=== PATIENT | male | born 1990 | race Caucasian/White ===

== ENCOUNTER 2017-04-27 15:28 | Inpatient (IN) | payer BC, OTHER ==
[~2017-04-27] VITALS: Ht 172.7 cm; Wt 59.0 kg
--- NOTE | 2017-04-27 22:30 | NUR ---
Pre-Admission Patient is a 26 year old male, seen at intake, AAOx4, no SOB and with slight anxiety noted at this time. Discussed with patient admission policies of the unit. Patient is coherent and able to respond to questions appropriately. Pt is ambulatory with steady gait. Vital Signs taken and is as follows: BP 128/78, pulse 120, resp 16, SpO2 98% room air, temp 97.4. Pt verbalizes instructions and teachings regarding disposal of narcotic and other controlled home meds, unit protocols such as taking of vital signs Q4H and handling and disposal of contraband. Will continue with admission upon pts arrival on the unit.
[2017-04-27 22:40] VITALS: BP 128/78
--- NOTE | 2017-04-27 22:40 | NUR ---
Admission Note Pt is a 26 year old male admitted to [facility] on 04/27/2017 for Opiate/Benzo dependence, arrived on the unit at 2240. NKA, denies history of seizures. Pt was able to provide urine drug screen. Upon admission, COWS 5, CIWA 3, BP 128/78, pulse 120, resp 16, SpO2 98% room air, temp 97.4, no pain, rated 0/10, weight 130lb and height 58. Pts primary care provider is Dr. Rivera Mckee in [place]. Pt denies being hospitalized within the past 30 days. Pt is able to understand and respond to all questions pertaining to his hospitalization. Substance Abuse History is as follows: 1.Heroin via smoke 2g/daily, last intake of 2g on 04/27/2017, at this rate for 1 year. 2.Oxycodone PO 80-100mg/daily, last intake of 100mg on February 2017, at this rate for the past 4 months. 3.Valium PO 10 pills of 10-20mg/daily, last intake of 10mg on February 2017, at this rate for the past 4 months. 4.Methamphetamine via smoke 7g/daily, last intake of 7g in March 2017, at this rate for the past month. Pt reports abusing meth for 2 years. Pt urine drug screen resulted positive for amphetamine, even though reports of taking it 1 month ago. Pt reports his trigger to use is due to anxiety, frustration and due to family issues. Pt states he first abused substances after his parents . Pts longest sober periods is 1 week, in 2016. This is pt first time in treatment. Pt reports no family history of substance abuse. Pt denies any past medical history. Pt did not bring any medications upon admission. Upon assessment, pt is alert/oriented x4, anxious, reports mild body aches, respirations even/unlabored, denies SOB/chest pain, PERRLA. Skin sweaty/clammy. Pt denies suicidal ideations. Education information provided and left at bedside, pt oriented to room and encouraged to notify staff with any concerns. Safety measures in place, call light within reach, side rails up x2, bed locked and in low position. Will continue to monitor.
[2017-04-27] MEDS ORDERED: BUPRENORPHINE HCL 2 MG TAB.SUBL SL PRN (23:00)
[2017-04-27] MEDS ORDERED: DICYCLOMINE HCL 20 MG TABLET PO PRN (23:00)
[2017-04-27] MEDS ORDERED: ONDANSETRON 4 MG/2 ML VIAL IM PRN (23:00)
[2017-04-27] MEDS ORDERED: DIAZEPAM 10 MG TABLET PO PRN ×2 (23:00)
[2017-04-27] MEDS ORDERED: LOPERAMIDE HCL 2 MG CAPSULE PO PRN ×2 (23:00)
[2017-04-27] MEDS ORDERED: MAG HYDROX/AL HYDROX/SIMETH 30 ML LIQUID UDC PO PRN (23:00)
[2017-04-27] MEDS ORDERED: CLONIDINE HCL 0.1 MG TABLET PO PRN (23:00)
[2017-04-27] MEDS ORDERED: MAGNESIUM HYDROXIDE 30 ML LIQUID UDC PO PRN (23:00)
[2017-04-27] MEDS ORDERED: diphenhydrAMINE 50 MG CAPSULE PO PRN (23:00)
[2017-04-27] MEDS ORDERED: LORAZEPAM 2 MG/1 ML VIAL IM PRN (23:00)
[2017-04-27] MEDS ORDERED: MIRALAX 17 GM POWD.PACK PO PRN (23:00)
[2017-04-27] MEDS ORDERED: ACETAMINOPHEN 325 MG TABLET PO PRN (23:00)
[2017-04-27] MEDS ORDERED: IBUPROFEN 600 MG TABLET PO PRN (23:00)
[2017-04-27] MEDS ORDERED: ONDANSETRON ODT 4 MG TAB.RAPDIS SL PRN (23:00)
[2017-04-27] MEDS ORDERED: DIAZEPAM 5 MG TABLET PO PRN (23:00)
[2017-04-28] VITALS: BP 140/89
[2017-04-28 01:10] LABS: BASOPHILS # (AUTO) 0.2 K/uL (0.0-8.0); BASOPHILS % (AUTO) 1.5 % (0.0-2.0); EOSINOPHILS # (AUTO) 0.1 K/uL (0.0-0.7); EOSINOPHILS % (AUTO) 0.8 % (0.0-7.0); HEMATOCRIT 44.9 % (40-50); HEMOGLOBIN 15.1 G/DL (14.0-18.0); LYMPHOCYTES # (AUTO) 1.2 K/UL (0.8-4.8); LYMPHOCYTES % (AUTO) 8.7 % (20.5-51.5); MEAN CORPUSCULAR HEMOGLOBIN 31.4 UUG (27.0-31.0); MEAN CORPUSCULAR HGB CONC 34 g/dL (32.0-37.0); MEAN CORPUSCULAR VOLUME 92.9 FL (82.0-92.0); MONOCYTES # (AUTO) 1.4 K/UL (0.1-1.30); MONOCYTES % (AUTO) 10.1 % (0.0-11.0); NEUTROPHILS % (AUTO) 78.9 % (38.5-71.5); PLATELET COUNT (AUTO) 230 K/UL (150-450); RED BLOOD CELL COUNT(AUTO) 4.83 MIL/UL (4.7-6.1); WHITE BLOOD COUNT (AUTO) 13.9 K/UL (4.0-11.2)
[2017-04-28 01:13] LABS: *AMPHETAMINE, URINE POSITIVE (NEGATIVE); *BARBITURATE, URINE NEGATIVE (NEGATIVE); *CANNABINOID, URINE NEGATIVE (NEGATIVE); *COCCAINE, URINE NEGATIVE (NEGATIVE); *OPIATE, URINE POSITIVE (NEGATIVE); *PHENCYCLIDINE SCREEN,URINE NEGATIVE (NEGATIVE)
[2017-04-28 01:21] LABS: ETHANOL < 3 MG/DL (0-0)
[2017-04-28 01:35] LABS: ALANINE AMINOTRANSFERASE 12 U/L (16-63); ALKALINE PHOSPHATASE 51 U/L (50-136); ASPARTATE AMINOTRANSFERASE 12 U/L (15-37); BILIRUBIN,TOTAL 0.8 mg/dL (0.2-1.0); CARBON DIOXIDE 33 mmol/L (21-32); CHLORIDE 103 mmol/L (98-107); GLUCOSE 106 mg/dL (74-106); MAGNESIUM 1.8 mg/dL (1.8-2.4); POTASSIUM 3.5 mmol/L (3.5-5.1); TOTAL PROTEIN, SERUM 6.8 g/dL (6.4-8.2); UREA NITROGEN, BLOOD 12 mg/dL (7-18)
--- NOTE | 2017-04-28 01:50 | NUR ---
PRN Administration Pt presents with anxiety, restlessness, reports being unable to sleep. BP 134/86, pulse 104. Clonidine 0.1mg PRN administered. Safety measures in place. Will continue to monitor.
[2017-04-28] MEDS ORDERED: CLONIDINE HCL 0.1 MG TABLET ONE (02:00)
[2017-04-28] MEDS ORDERED: D-ME236L5 PO (02:31)
[2017-04-28] MEDS ORDERED: ACET-2154 PO (02:31)
--- NOTE | 2017-04-28 02:50 | NUR ---
PRN Reassessment Pt is sleeping, respirations even/unlabored, no s/s of distress. safety measures in place, will continue to monitor.
[2017-04-28 04:00] VITALS: BP 117/78
--- NOTE | 2017-04-28 04:00 | NUR ---
Vital Signs BP 117/78, pulse 100, resp 16, SpO2 100% room air, temp 97.5 CIWA/COWS deferred d/t pt sleeping to assess while pt is awake as ordered. Safety measures in place. will continue to monitor.
--- NOTE | 2017-04-28 07:00 | NUR ---
End of Shift Pt is a 26 year old male admitted for Opiate/Benzo dependence. Upon admission pt reports using Heroin via smoke 2g/daily, last intake of 2g on 04/27/2017, Oxycodone PO 80-100mg/daily, last intake of 100mg on February 2017, Valium PO 10 pills of 10-20mg/daily and Methamphetamine via smoke 7g/daily, last intake of 7g in March 2017. Pt urine drug screen resulted positive for amphetamine, even though reports of taking it 1 month ago. NKA, regular diet, fall precautions and full code. Pt denies any past medical history. During shift, Clonidine 0.1mg PRN administered for anxiety and restlessness, effective. COWS 5 and CIWA 3. Pt slept for 3 hours, intake of 500 ml PO, voids x1 and stool x0. Safety measures in place, call light within reach, side rails up x2, bed locked and in low position. Endorsed to day shift nurse.
--- NOTE | 2017-04-28 08:07 | NUR ---
BEGINNING OF SHIFT Patient endorsement report received from logistic specialist nurse, all pertinent information discussed. Patient with admitting Dx: bzo/ Opiate dependence, and substance use of Methamphetamine. Under close observation, patient scheduled to begin a taper today, will monitor closely. patient was administered PRN: Clonidine during logistic specialist, medication was effective as per logistic specialist, patient slept 4 hours. with last cow score of: 5, and last ciwa score of: 3. Fall and seizure precautions observed and in place. safety measures in place. will continue to monitor closely. Patient received in room, alert and oriented x4, educated regarding plan of care for the day and medication regimen with good verbal understanding. Will continue to monitor.
[2017-04-28 09:00] VITALS: BP 125/73
[2017-04-28] MEDS ORDERED: DIAZEPAM 10 MG TABLET PO SCH (09:00)
[2017-04-28] MEDS ORDERED: TUBERCULIN,PURIF.PROT.DERIV. 5 TU/0.1 ML TEST ID ONE (09:00)
[2017-04-28] MEDS ORDERED: GABAPENTIN 300 MG CAPSULE PO SCH (09:00)
[2017-04-28] MEDS ORDERED: BUPRENORPHINE HCL 2 MG TAB.SUBL SL SCH (09:00)
[2017-04-28] MEDS: MULTIVITAMINS,THERAPEUTIC TABLET PO SCH (09:34)
[2017-04-28] MEDS ORDERED: LORAZEPAM 1 MG TABLET PO PRN ×2 (10:45)
--- NOTE | 2017-04-28 11:00 | NUR ---
MD COMMUNICATION Patient started on a 5 day subutex taper, taper to begin at 1300 as ordered, will monitor closely.
[2017-04-28 13:20] VITALS: BP 95/63
[2017-04-28] MEDS: BUPRENORPHINE HCL 2 MG TAB.SUBL SL SCH ×3 (13:26→20:23)
[2017-04-28 17:08] VITALS: BP 127/83
--- NOTE | 2017-04-28 18:50 | NUR ---
END OF SHIFT Patient alert and oriented x4, vital signs were stable during shift. Patient with admitting Dx: BZO/Opiate dependence, patient was started on a 5 day Subutex taper, tapers first dose was administered during shift, approximately 1300. well tolerated, no ASE noted. Patient compliant with therapeutic plan of care. Patient continues under close observation. 0900 assessment patient presented with her rate of 93, restlessness, mild bone and joint aches, irritable and anxiety with cow score of: 5; 1300 assessment patient presented with: c/o chills, difficulty sitting still, dilated pupils, severe bone and joint aches, irritable, anxiety, and goosebump with cow score of: 11; 1700 assessment patient presented with: c/o chills, difficulty sitting still, dilated pupils, severe bone and joint aches, irritable, anxiety, and goosebump with cow score of: 11. Encouraged adequate PO fluid intake as tolerated. During shift patient received no PRN medications. During shift MD notified of all labs, with no new orders. Patient was administered PPD as ordered , well tolerated. Patient denies any SI/HI. Encouraged patient to attend group therapies/sessions to learn new coping skills to prevent relapse/ Vital signs were stable during shift. Safety measures in place. Will continue to monitor.
--- NOTE | 2017-04-28 19:30 | NUR ---
320 BEGINNING OF SHIFT Received a 26 y/o male px . No known PMHx . NKA. Ambulatory. Dx: bzo/ Opiate dependence, and substance use of Methamphetamine. Under close observation, patient started Subutex taper this morning. Fall and seizure precautions observed and in place. safety measures in place. will continue to monitor closely. Patient received in room, alert and oriented x4, educated regarding plan of care for the day and medication regimen with good verbal understanding. Will continue to monitor. Latest COWS 11.
[2017-04-28 20:00] VITALS: BP 134/92
[2017-04-28] MEDS: METHOCARBAMOL 750 MG TABLET PO PRN (20:21)
[2017-04-28] MEDS: GABAPENTIN 300 MG CAPSULE PO SCH (20:22)
--- NOTE | 2017-04-28 20:23 | NUR ---
PRN administration Zofran 4mg given SL as PRN meds for the complaints of nausea and Robaxin 750mg given PO as PRN meds for the complaints of pain 10. Will reassess after an hour.
--- NOTE | 2017-04-28 21:30 | NUR ---
PRN meds reassessment Px has no more complaints of nausea. Pain was relieved from 03/15 to 12/14
[2017-04-29] VITALS (7 sets, daily range): BP systolic 107–124; BP diastolic 68–81
--- NOTE | 2017-04-29 04:00 | NUR ---
COWS deferred Px sleeping with stable VS, unable to assess COWS at this time, will continue to monitor
--- NOTE | 2017-04-29 07:19 | NUR ---
320 End of Shift Pt is a 26 year old male admitted for Opiate/Benzo dependence. NKA, regular diet, fall precautions and full code. Pt denies any past medical history. During shift, Px complained of nausea, Zofran 4mg given SL as PRN med. Complained of general body aches 03/15, Robaxin 750mg given PO as PRN med. Pt slept for 10 hours, intake of 600 ml PO, voids x1 and stool x0. Safety measures in place, call light within reach, side rails up x2, bed locked and in low position. Latest COWS 6. Endorsed to day shift nurse.
--- NOTE | 2017-04-29 07:47 | NUR ---
BEGINNING OF SHIFT Patient endorsement report received from shift production supervisor nurse, all pertinent information discussed. Patient with admitting Dx: Opiate dependence, and substance use of Methamphetamine, BZO. Under close observation, Patient with ongoing subutex taper as ordered, and is schedueld to begin day 2 of taper. patient was administered PRN: Robaxin and Zofran during shift production supervisor, medication was effective as per shift production supervisor, patient slept 10 hours. with last cow score of: 6. Fall and seizure precautions observed and in place. safety measures in place. will continue to monitor closely. Patient received in room, alert and oriented x4, educated regarding plan of care for the day and medication regimen with good verbal understanding. Will continue to monitor.
[2017-04-29] MEDS: GABAPENTIN 300 MG CAPSULE PO SCH ×2 (08:32→20:41)
[2017-04-29] MEDS: MULTIVITAMINS,THERAPEUTIC TABLET PO SCH (08:32)
[2017-04-29] MEDS: METHOCARBAMOL 750 MG TABLET PO PRN (08:33)
[2017-04-29] MEDS: BUPRENORPHINE HCL 2 MG TAB.SUBL SL SCH ×3 (08:33→20:42)
--- NOTE | 2017-04-29 08:33 | NUR ---
PRN ROBAXIN Patient c/o muscle aches 03/15, provided with non pharmacological interventions with no relief, administered Robaxin as ordered, will monitor effectiveness of medication.
[2017-04-29] MEDS ORDERED: DIAZEPAM 10 MG TABLET PO SCH (09:00)
--- NOTE | 2017-04-29 09:33 | NUR ---
ROBAXIN REASSESSMENT Patient reports medication effective, current pain level is 0/10, will continue to monitor closely. safety measures in place.
[2017-04-29 14:12] LABS: HEPATITIS B SURFACE AG Negative (Negative)
--- NOTE | 2017-04-29 18:54 | NUR ---
END OF SHIFT Patient alert and oriented x4, vital signs were stable during shift. Patient with admitting Dx: Opiate dependence, patient continues on a 5 day Subutex taper, as ordered, patient currently on day 2 of taper, well tolerated, no ASE noted. Patient compliant with therapeutic plan of care. Patient continues under close observation. 0900 assessment patient presented with: heart rate of 86, c/o chills, restlessness, severe bone and joint aches, tremors that can be felt but not seen, tremors that can be felt but not seen, irritable, and anxiety with cow score of: 8. 1300 assessment patient presented with: heart rate of: 94, c/o chills, mild bone and joint aches, tremors that can be felt but not seen, and anxiety with cow score of: 6. 1700 assessment patient presented with: heart rate of: 87, c/o chills, mild bone and joint aches, tremors that can be felt but not seen, and anxiety with cow score of: 6. Detox medications effective at reducing withdrawal symptoms. Encouraged adequate PO fluid intake as tolerated. During shift patient received PRN: Robaxin, medication effective one hour post administration. Patient denies any SI/HI. Encouraged patient to attend group therapies/sessions to learn new coping skills to prevent relapse, preferred to stay in room, despite much encouragement. patient reports he is tired and wants to rest, verbalized he will start attending group therapies tomorrow. Vital signs were stable during shift. Safety measures in place. Will continue to monitor.
--- NOTE | 2017-04-29 19:30 | NUR ---
320 BEGINNING OF SHIFT Received from AM shift, Denies PMhx., on regular diet, NKA. FULL CODE. Dx: bzo/ Opiate dependence, and substance use of Methamphetamine. Under close observation. Still shows anxiety. With last cows 6. Fall and seizure precautions observed and in place. Safety measures in place. will continue to monitor closely. Patient received in room, alert and oriented x4, educated regarding plan of care for the day and medication regimen with good verbal understanding. Will continue to monitor
--- NOTE | 2017-04-29 20:42 | NUR ---
Px was given Benadryl 50mg PO as PRN meds per px's request to help him sleep.
--- NOTE | 2017-04-29 22:09 | NUR ---
PRN Administration Patient presented with complains of sweating, chills, anxiety, restlessness, nausea, generalized body aches, mild headache. COWS 12 CIWA 10 noted. PRN Subutex 4mg, Ativan 1mg, Zofran 4mg & Motrin administered as ordered. Will reassess for effectiveness of medication. Will continue to monitor. Addendum: 04/30/17 at 311 by DEBBI CUMMINS RN PRN CLonidine 0.1mg PO also given for B/P 176/109, [place] 115. Addendum: 04/30/17 at 032 by DEBBI CUMMINS RN ERROR.. Pls disregard. Wrong patient documented.
--- NOTE | 2017-04-29 23:09 | NUR ---
PRN Reassessment Patient verbalized improved nausea & decreased in anxiety. Patient noted with less sweating and chills at this time. Bilateral hand tremors still noted. No hallucinations. COWS 9 CIWA 6 noted. Will continue to monitor. Addendum: 04/30/17 at 0325 by DEBBI CUMMINS RN ERROR.. Pls disregard. Wrong patient documented.
[2017-04-30 00:18] VITALS: BP 108/74
[2017-04-30 04:00] VITALS: BP 112/78
--- NOTE | 2017-04-30 04:00 | NUR ---
COWS deferred Px sleeping with stable VS, unable to assess COWS at this time, will continue to monitor
--- NOTE | 2017-04-30 07:17 | NUR ---
320 End of Shift Pt is a 26 year old male admitted for Opiate/Benzo dependence. NKA, regular diet, fall precautions and full code. Pt denies any past medical history. Px requested med to aid him to sleep. Benadryl 50mg 1 cap given PO as PRN med. Pt slept for 9 hours, intake of 1300 ml PO, voids x3 and stool x0. Safety measures in place, call light within reach, side rails up x2, bed locked and in low position. Latest COWS 2. Endorsed to day shift nurse.
--- NOTE | 2017-04-30 07:41 | NUR ---
BEGINNING OF SHIFT Patient endorsement report received from operations supervisor 2nd shift nurse, all pertinent information discussed. Patient with admitting Dx: Opiate dependence, and substance use of Methamphetamine, BZO. Under close observation, Patient with ongoing subutex taper as ordered, and is schedueld to begin day 3 of taper. patient was administered PRN: Benadryl during operations supervisor 2nd shift, medication was effective as per operations supervisor 2nd shift, patient slept 09 hours. with last cow score of: 2. Fall and seizure precautions observed and in place. safety measures in place. will continue to monitor closely. Patient received in room, alert and oriented x4, educated regarding plan of care for the day and medication regimen with good verbal understanding. Will continue to monitor.
[2017-04-30 08:47] VITALS: BP 96/62
[2017-04-30] MEDS ORDERED: DIAZEPAM 5 MG TABLET PO SCH (09:00)
[2017-04-30] MEDS ORDERED: BUPRENORPHINE HCL 2 MG TAB.SUBL SL SCH (09:00)
[2017-04-30] MEDS: GABAPENTIN 300 MG CAPSULE PO SCH ×3 (09:05→20:19)
[2017-04-30] MEDS: MULTIVITAMINS,THERAPEUTIC TABLET PO SCH (09:05)
[2017-04-30 13:59] VITALS: BP 101/63
[2017-04-30] MEDS: BUPRENORPHINE HCL 2 MG TAB.SUBL SL SCH ×2 (14:27→20:20)
[2017-04-30 17:00] VITALS: BP 139/86
--- NOTE | 2017-04-30 18:39 | NUR ---
END OF SHIFT Patient alert and oriented x4, vital signs were stable during shift. Patient with admitting Dx: Opiate dependence, patient continues on a 5 day Subutex taper, as ordered, patient currently on day 3 of taper, well tolerated, no ASE noted. Patient compliant with therapeutic plan of care. Patient continues under close observation. 0900 assessment patient presented with: tremors that can be felt but not seen, mild anxiety , and mild bone and joint aches; 1300 assessment patient presented with: heart rate of 91, mild bone and joint aches, tremors that can be felt but not seen, with cow score of: 4; 1700 assessment patient presented with: tremors that can be felt but not seen, and mild anxiety, and heart rate of: 101, with cow score of: 4. Detox medications effective at reducing withdrawal symptoms. Encouraged adequate PO fluid intake as tolerated. During shift patient received no PRN medications. medication effective one hour post administration. Patient denies any SI/HI. Encouraged patient to attend group therapies/sessions to learn new coping skills to prevent relapse, Noted attending attending and participating. Vital signs were stable during shift. Safety measures in place. Will continue to monitor.
--- NOTE | 2017-04-30 19:23 | NUR ---
Start of shift note Received report from day shift nurse. Pt is a 26 yo male, A+Ox4, presenting to [facility] for Opiate/Benzo/MEth dependence. Pt has NKA, is onn Full Code status, and on Regular diet. Pt has no medical HX to report. Pt is on Fall precautions. Pt is on 5 day Subutex taper, tolerated well. No s/s of distress noted at this time. Respirations even and unlabored. Will continue to monitor.
[2017-04-30 20:27] VITALS: BP 116/71
[2017-05-01 00:36] VITALS: BP 112/68
[2017-05-01 04:12] VITALS: BP 115/71
--- NOTE | 2017-05-01 07:00 | NUR ---
End of shift note Pt is a 26 yo male, A+Ox4, presenting to [facility] for Opiate/Benzo/Meth dependence. Pt has NKA, is on Full Code status, and on Regular diet. Pt has no medical HX to report. Pt is on Fall precautions. Pt is on 5 day Subutex taper, tolerated well. Pt slept for a total of 10 HRS. Last COWS: 2 No s/s of distress noted at this time. Respirations even and unlabored. Will endorse to day shift nurse.
--- NOTE | 2017-05-01 07:05 | NUR ---
Start of Shift Endorsement received from nightshift nurse. Pt is a 26 y/o male admitted for heroin, oxycodone, valium and meth. Pt has been placed on a 5 day Subutex taper. PT is tolerating the taper and mildly withdrawing AEB COWS 2 at 0400 per nightshift nurse. PT reports sleeping 8 hours. Reports feeling rested. Pt reports readiness for sobriety. PT did not receive any PRN medications during nightshift. VS WNL. Full Code. Regular Diet. PT is alert and oriented x4. Pt is in STABLE condition at this time. Remains compliant with medication and diet regimen. All needs have been met, All safety measures in place per hospital policy. Bed in lowest position, side rails up x2, call-light within reach. Will continue to monitor
[2017-05-01 08:00] VITALS: BP 110/60
[2017-05-01] MEDS: MULTIVITAMINS,THERAPEUTIC TABLET PO SCH (08:55)
[2017-05-01] MEDS: GABAPENTIN 300 MG CAPSULE PO SCH ×3 (08:55→20:43)
[2017-05-01] MEDS: BUPRENORPHINE HCL 2 MG TAB.SUBL SL SCH ×3 (08:56→20:43)
[2017-05-01] MEDS ORDERED: DIAZEPAM 5 MG TABLET PO SCH (09:00)
[2017-05-01 12:00] VITALS: BP 120/78
[2017-05-01 16:00] VITALS: BP 124/80
--- NOTE | 2017-05-01 18:51 | NUR ---
End of Shift Endorsement received from nightshift nurse. Pt is a 26 y/o male admitted for heroin, oxycodone, valium and meth. Pt has been placed on a 5 day Subutex taper. PT is tolerating the taper and mildly withdrawing AEB COWS 5 at 1600. Pt participated in groups and activities. Educated pt on S/E of medications and diet regimen. Encouraged pt to drink more fluids. Demonstrated deep breathing technique for the pt to help relieve mild to moderate anxiety, reinforcement is needed. Pt reports readiness for sobriety . PT did not receive any PRN medications. Intake: 1000ml, Void x3, BM x0. VS WNL. Full Code. Regular Diet. PT is alert and oriented x4. Pt is in STABLE condition at this time. Remains compliant with medication and diet regimen. All needs have been met, All safety measures in place per hospital policy. Bed in lowest position, side rails up x2, call-light within reach. Will continue to monitor
--- NOTE | 2017-05-01 19:30 | NUR ---
Start of Shift Note: Patient is a 26 y/o male admitted on 04/27/17 for Opiate dependence. Patient denies any past medical history. No seizure history noted. Patient is on a regular diet with no known food and drug allergies. Full Code status. Patient is on a 5-day SUbutex taper and tolerating well. Last COWS is 5. No PRN medications given during day shift. Patient has been attending groups during the day. Pt remains complaint with treatment plan. Patient is alert & oriented x4. Patient is ambulatory with a steady gait. No shortness of breath noted. Respiration even & unlabored. Abdomen soft & non-distended. No nausea/vomiting noted. Patient denies pain & discomfort. No sweating or chills noted. No hand tremors noted. Safety precautions are in place. bed locked in lowest position. Both side rails up. Call light within pts reach. Will continue to monitor patient.
[2017-05-01 20:00] VITALS: BP 123/74
[2017-05-01] MEDS: diphenhydrAMINE 50 MG CAPSULE PO PRN (20:43)
--- NOTE | 2017-05-01 20:43 | NUR ---
PRN Benadryl Patient requesting medication to help him sleep. PRN Benadryl administered as ordered. Will continue to monitor patient.
[2017-05-02] VITALS: BP 116/78
[2017-05-02 04:00] VITALS: BP 108/65
--- NOTE | 2017-05-02 07:07 | NUR ---
End of Shift Note: Patient had an uneventful night. Patient continues on his Subutex taper and tolerating well. Patient remained stable and vitals remained WNL. Patient is compliant with treatment plan. Last COWS 2 at 0000. Patient was given PRN Benadyl during my shift. Patient remained compliant with treatment plan. Patient still asleep at this time and appears comfortable. No s/s of distress noted. Pt slept for a total of 10 hours. Pt consumed 555ml of fluids. Pt voided 1x with no bowel movement. All needs attended & met. Safety precautions are in place. Will continue to monitor patient.
[2017-05-02 08:00] VITALS: BP 112/60
--- NOTE | 2017-05-02 08:10 | NUR ---
START OF SHIFT NOTE Received report from night nurse, 26 year old male admitted for Opiate dependence. Patient denies any past medical history. Patient is on a 5-day Subutex taper and tolerating well. Per endorsement pt were not given any PRN'S, Last COWS-3, Slept for 10 hours. Patient received in room, alert and oriented x4, educated regarding plan of care for the day and medication regimen with good verbal understanding. Will continue to monitor.
[2017-05-02] MEDS: MULTIVITAMINS,THERAPEUTIC TABLET PO SCH (08:51)
[2017-05-02] MEDS: GABAPENTIN 300 MG CAPSULE PO SCH ×3 (08:51→20:13)
[2017-05-02] MEDS ORDERED: DIAZEPAM 5 MG TABLET PO SCH (09:00)
[2017-05-02] MEDS ORDERED: BUPRENORPHINE HCL 2 MG TAB.SUBL SL SCH ×2 (09:00)
[2017-05-02 12:00] VITALS: BP 107/72
[2017-05-02 14:16] LABS: *AMPHETAMINE, URINE NEGATIVE (NEGATIVE); *BARBITURATE, URINE NEGATIVE (NEGATIVE); *CANNABINOID, URINE NEGATIVE (NEGATIVE); *COCCAINE, URINE NEGATIVE (NEGATIVE); *OPIATE, URINE POSITIVE (NEGATIVE); *PHENCYCLIDINE SCREEN,URINE NEGATIVE (NEGATIVE)
[2017-05-02 16:00] VITALS: BP 110/66
--- NOTE | 2017-05-02 19:18 | NUR ---
START OF SHIFT NOTE: Patient endorsed by outgoing day shift nurse. Report received. Patient is a 26 year old male admitted to [facility] on 04/27/17 for Benzodiazepines, Opioid, and Methamphetamine (PO). Patient completed 5 Day Subutex Taper with tolerated well without ASE. Patient reports NKA, is Full Code, Regular Diet, Fall and Seizures Precautions. Patient denies History of Seizures. PMH: Anxiety, Depression, Substance Abuse, Tobacco dependence. Patient is a "first time in Treatment/Detox". Upon endorsement patient is in his Room alert and oriented x 4. Speech is soft and clear. VSWNL. COWS 2. Patient is anxious and agitated. Respiration s clear and even. Patient denies SOB, cough, and chest pain. Breathing Sounds are clear throughout. Bowel Sounds are active in all four quadrants. Patient denies SI/HI. Skin is intact, warm, and dry to touch. Encouraged fluids as tolerated. Patient scheduled discharging tomorrow, on 05/03/2017. UDS Test results placed in chart. All needs met. Safety measures on place. Call light within reach, bed in lowest position and locked, padded rails up bilaterally. Will continue to monitor closely. Addendum: 05/03/17 at 0708 by COSTA LAZO RN Patient is a 26 year old male admitted to [facility] on 04/27/17 for Opioid dependence.
--- NOTE | 2017-05-02 19:18 | NUR ---
END OF SHIFT NOTE Pt completed his Subutex taper tolerated well. No PRN was given during day shift. Pt rested most of the day in his room. Pt did not attend any groups or activities. Encouraged Po fluids as tolerated. Pt scheduled for discharge in AM, urine drug screen placed in the chart. Skin intact warm and dry to touch. Last COWS-1. Pt remained compliant with plan of care. All safety measures in place, Call light within reach. P endorsed to night nurse in stable condition.
[2017-05-02 20:00] VITALS: BP 95/62
[2017-05-02] MEDS: diphenhydrAMINE 50 MG CAPSULE PO PRN (20:13)
[2017-05-03] VITALS: BP 105/62
[2017-05-03 04:00] VITALS: BP 97/60
[2017-05-03] MEDS ORDERED: GABA-534 PO (04:32)
[2017-05-03] MEDS ORDERED: CLON0.1T14 PO (04:32)
[2017-05-03] MEDS ORDERED: ONDA4TAB11 SL (04:32)
[2017-05-03] MEDS ORDERED: METH-406 PO (04:32)
--- NOTE | 2017-05-03 07:06 | NUR ---
END OF SHIFT NOTE: Patient endorsed by outgoing day shift nurse. Report received. Patient is a 26 year old male admitted to [facility] on 04/27/17 for Opioid dependence. Patient completed 5 Day Subutex Taper with tolerated well without ASE. Patient reports NKA, is Full Code, Regular Diet, Fall and Seizures Precautions. Patients denies Seizures Hx r/t withdrawal from substances.PMH: Anxiety, Depression, Substance Abuse, Tobacco dependence. Patient is a "first time in Treatment/Detox". Upon endorsement patient is in his Room alert and oriented x 4. Speech is soft and clear. VS at 0400: T: 98.4; BP: 115/83; HR: 115; RR: 19; O2 SAT: 100%. Pain level: "0/10". Last COWS 1 at 0400. Respirations unlabored and even. Patient denies SOB, cough, and chest pain. Patient denies SI/HI. Skin is intact, warm, and dry to touch. No PRN Medications administrated last night. Patient scheduled discharging today, on 05/03/2017. UDS Test results placed in chart. Encouraged fluids as tolerated Patient slept 8 hours 15 min., intake 455 ml, voided x1. All needs met. Safety measures on place. Call light within reach, bed in lowest position and locked, padded rails up bilaterally.
[2017-05-03 08:00] VITALS: BP 125/69
--- NOTE | 2017-05-03 08:04 | NUR ---
START OF SHIFT NOTE Received report from night nurse, 26 year old male admitted for Opiate dependence. Patient denies any past medical history. Patient is on a 5-day Subutex taper and tolerating well. Per endorsement pt was not given any PRN'S, Last COWS-3, Slept for 8 hours. Pt schedule for discharge today. Patient received in room, alert and oriented x4, educated regarding plan of care for the day and medication regimen with good verbal understanding. Will continue to monitor.
[2017-05-03] MEDS: MULTIVITAMINS,THERAPEUTIC TABLET PO SCH (08:25)
[2017-05-03] MEDS: GABAPENTIN 300 MG CAPSULE PO SCH (08:25)
--- NOTE | 2017-05-03 10:25 | NUR ---
DISCHARGE NOTE Pt is a 26 year old male,Alert oriented x4. Pt is in stable condition. Vital signs WNL. Skin intact , pt denies any SI/HI ideation. All discharge paper work completed dated and signed. Pt educated about discharge instructions, pt verbalized understanding. Pt's last COWS score was 1. Pt discharged from [facility] on 05/03/17 at 1025 to [facility]. Pt left with all of his belongings and prescriptions, Pt did not bring any medications with him to the unit. has been contracted and notified of Pt's discharge.
== END 2017-05-03 10:25 | disposition other institution (70) | DRG 895 ==
LOC: SRC 21:43
PROVIDERS: ADMIT Internal Medicine; ATTEND Internal Medicine
PROC: HZ2ZZZZ Detoxification Services for Substance Abuse Treatment (ICD-10-PCS; principal; 2017-04-27)
PROC: HZ41ZZZ Group Counseling for Substance Abuse Treatment, Behavioral (ICD-10-PCS; 2017-04-30)
DX: F11.23 Opioid dependence with withdrawal (principal); E87.3 Alkalosis; E86.0 Dehydration; F41.9 Anxiety disorder, unspecified; Z83.3 Family history of diabetes mellitus; D72.823 Leukemoid reaction; F15.23 Other stimulant dependence with withdrawal; F13.10 Sedative, hypnotic or anxiolytic abuse, uncomplicated; F12.90 Cannabis use, unspecified, uncomplicated
CPT/HCPCS: 36415; 70030-TC; 80307; 80324; 80361; 83735; 85025; 86580; 86592; 86705; 86803; 87340; 87806; A4663; G0480; Q0163